=== PATIENT | male | born 1955 | race Caucasian/White ===

== ENCOUNTER → 2017-02-28 | Outpatient (CLI) | payer BC ==
[~2017-02-28] MED LIST: FLOMAX0.4 MG PO; ONDANSETRON ODT4 MG PO; PERCOCET 5/31 TABLET PO
== END | disposition home or self-care (01) ==
LOC: CDC 14:19
DX: Z01.810 Encounter for preprocedural cardiovascular examination (principal); N20.1 Calculus of ureter; I45.4 Nonspecific intraventricular block
CPT/HCPCS: 93000